=== PATIENT | male | born 1960 | race Caucasian/White ===

== ENCOUNTER 2024-01-15 13:27 | Outpatient (CLI) | payer OTHER, SELFPAY ==
[2024-01-15 14:10] LABS: Alanine Aminotransferase 10 U/L (16-63); Albumin Level 3.4 g/dL (3.4-5.0); Alkaline Phosphatase 115 U/L (46-116); Anion Gap 7 mmol/L (4-12); Aspartate Amino Transferase 20 U/L (15-37); Bilirubin,Total 0.1 mg/dL (0.00-1.00); Blood Urea Nitrogen 20 mg/dL (7-18); Calcium 8.4 mg/dL (8.5-10.1); Carbon Dioxide 28 mmol/L (21-32); Chloride 104 mmol/L (98-108); Cholesterol 188 mg/dL (0-200); Estimated Glomerular Filt Rate > 60; Glucose 108 mg/dL (70-99); HDL Direct 44 mg/dL (40-60); LDL Cholesterol Calculated 125 mg/dL (<130); Osmolality Calculated 291 mOsm/kg (285-295); Potassium 3.8 mmol/L (3.5-5.1); Sodium 139 mmol/L (136-145); Total Protein 6.5 g/dL (6.4-8.2); Triglycerides 95 mg/dL (0-150)
== END 2024-01-15 13:28 | disposition home or self-care (01) ==
PROVIDERS: PCP Nurse Practitioner Family; Visit Provider Nurse Practitioner Family
DX: Z00.00 Encounter for general adult medical examination without abnormal findings (principal); Z13.6 Encounter for screening for cardiovascular disorders
CPT/HCPCS: 36415; 80053; 80061

== ENCOUNTER 2025-02-20 19:39 | Emergency (ER) | payer OTHER, SELFPAY ==
[2025-02-20 19:41] VITALS: BP 142/85; PULSE 80; RESP 15; TEMP 37.1; O2SAT 98
--- OUTSIDE RECORDS SUMMARY | 2025-02-20 19:42 | XMS_ITS | Clinical Summary ---
Author Organization [facility] Address [address] [place] [address] Phone Care Team Providers Care Manager Budget Name Role Phone Provider, None Primary Care Provider Unavailabl e Medications No known medications Social History Tobacco Use Types Packs/Day Years Used Date Smoking Tobacco: Every Day Cigarettes Smokeless Tobacco: Former Alcohol Use Standard Drinks/Week Comments Never 0 (1 standard drink = 0.6 oz pur e alcohol) Sex and Gender Information Value Date Recorded Sex Assigned at Not on file Legal Sex Male 10:01 PM CDT Gender Identity Not on file Sexual Orientation Not on file Last Filed Vital Signs Vital Sign Reading Time Taken Comments Blood Pressure 121/68 07/26/2021 9:27 PM BEAD PICKER Pulse 70 07/26/2021 9:27 PM BEAD PICKER Temperature 36.2 C (97.1 F) 07/26/2021 8:08 PM BEAD PICKER Respiratory Rate 16 07/26/2021 9:27 PM BEAD PICKER Oxygen Saturation 100% 07/26/2021 9:27 PM BEAD PICKER Inhaled Oxygen Concentration - - Weight 68 kg (150 lb) 07/26/2021 8:08 PM BEAD PICKER Height 182.9 cm (6') 07/26/2021 8:08 PM BEAD PICKER Body Mass Index 20.34 07/26/2021 8:08 PM BEAD PICKER Plan of Treatment Not on file Insurance MEDICAID [facility] PLAN Care Teams Manager Budget Relationship Specialty Start Date End Date Provider, None [place] PCP - General 07/26/21
--- NOTE | 2025-02-20 20:00 | ED.SKABFB ---
HPI - Skin/Abscess/Foreign Bdy General Chief complaint: Skin/Abscess/Foreign Body Stated complaint: rash Time Seen by Provider: 02/20/25 19:49 Source: patient Mode of arrival: ambulatory Limitations: no limitations History of Present Illness HPI narrative: this is a 64-year-old male that has a rash on his right arm after he was working outdoors and believes that he got into poison sumac are poison sascha with there is no shortness of breath no audible wheezing no nausea vomiting or abdominal pain no fever chills. Onset (ago): day(s) Location: R hand Severity: mild Related Data Allergies Allergy/AdvReac Type Severity Reaction Status Date / Time propoxyphene Allergy Severe RASH Verified 02/20/25 19:58 Review of Systems Review of Systems: All systems reviewed & are unremarkable except as noted in HPI and below PMFSH Social History Social History Smoking packs per day: 0.5 Smoking cigarettes per day: 10.0 Years smoked: 40 Smoking pack-years: 20.00 Smoking status: Current every day smoker Tobacco type: cigarettes Second hand tobacco smoke exposure: Yes Alcohol intake: former Substance use type: marijuana Exam Const: General: healthy appearing and no acute distress Nutritional Appearance: well nourished Neck: Neck: normal visual inspection and no lymphadenopathy Resp: Effort & Inspection: normal respiratory effort Auscultation: clear to auscultation bilaterally Cardio: Rate: regular rate Rhythm: regular rhythm Skin: Wounds: wounds noted Other: Rash located on his right arm with itchy Neuro: General: patient oriented x3 and moves all extremities Course Course Emergency Course: patient received 80mg Depo-Medrol and prednisone sent to patient's local pharmacy to be started tomorrow along with triamcinolone ointment. Vital Signs Vital signs: Vital Signs Temperature 37.1 C 02/20/25 19:41 Pulse Rate 80 02/20/25 19:41 Respiratory Rate 15 02/20/25 19:41 Blood Pressure 142/85 H 02/20/25 19:41 Pulse Oximetry 98 02/20/25 19:41 Oxygen Delivery Room Air 02/20/25 19:41 Temperature 37.1 C 02/20/25 19:41 Pulse Rate 80 02/20/25 19:41 Respiratory Rate 15 02/20/25 19:41 Blood Pressure 142/85 H 02/20/25 19:41 Pulse Oximetry 98 02/20/25 19:41 Oxygen Delivery Room Air 02/20/25 19:41 Critical Care Time Critical Care Time Critical Care Time: No Discharge Plan Discharge Clinical Impression: Contact dermatitis Patient Disposition: Home Condition: Stable Instructions: Antibiotic Form, Contact Dermatitis (ED) Additional Instructions: Advised to take medication as prescribed and to follow with primary care physician within 1 week if symptoms persist or worsen. Patient Language: [place] Prescriptions: New triamcinolone acetonide 0.1 % ointment 1 applic topical TID 7 Days Qty: 30 0RF prednisone 20 mg tablet 20 mg PO DAILY 5 Days Qty: 5 0RF Follow-up/Referrals: UNKNOWN,DOCTOR [Primary Care Provider] Time of Disposition: 20:04
--- OUTSIDE RECORDS SUMMARY | 2025-02-20 20:27 | XMS_ITS | Clinical Summary ---
Author Organization [facility] Address [address] [place] [address] Phone Care Team Providers Care Novelty Maker Name Role Phone Provider, None Primary Care [...] Comments Blood Pressure 121/68 07/26/2021 9:27 PM SKIN CARE SPECIALIST Pulse 70 07/26/2021 9:27 PM SKIN CARE SPECIALIST Temperature 36.2 C (97.1 F) 07/26/2021 8:08 PM SKIN CARE SPECIALIST Respiratory Rate 16 07/26/2021 9:27 PM SKIN CARE SPECIALIST Oxygen Saturation 100% 07/26/2021 9:27 PM SKIN CARE SPECIALIST Inhaled Oxygen Concentration - - Weight 68 kg (150 lb) 07/26/2021 8:08 PM SKIN CARE SPECIALIST Height 182.9 cm (6') 07/26/2021 8:08 PM SKIN CARE SPECIALIST Body Mass Index 20.34 07/26/2021 8:08 PM SKIN CARE SPECIALIST Plan of Treatment Not on file Insurance MEDICAID [facility] PLAN Care Teams Novelty Maker Relationship Specialty Start Date End Date Provider, None [place] PCP - General 07/26/21
[2025-02-20] MEDS: methylPREDNISolone ACETATE 40 MG/ML VIAL 80 MG IM (20:28)
[2025-02-20 20:51] VITALS: BP 138/84; PULSE 78; RESP 18; O2SAT 96
== END 2025-02-20 20:51 | disposition home or self-care (01) ==
LOC: CHSED 20:25
PROVIDERS: Emergency Provider Emergency Medicine; Referring Provider Family Medicine
DX: L25.9 Unspecified contact dermatitis, unspecified cause (principal); F17.210 Nicotine dependence, cigarettes, uncomplicated
CPT/HCPCS: 96372; 99283; J1010